=== PATIENT | female | born 1960 | race Caucasian/White ===

== ENCOUNTER 2019-10-05 15:10 | Outpatient (CLI) | payer OTHER, SELFPAY ==
--- NOTE | 2019-10-05 15:19 | USCV_ITS ---
Ivelisse Tucker Age: 58 Gender: F : 1960 Exam Date: 10/05/2019 15:36 Ordering Phys: Aura Bianchi [employer] Technologist: Trey Roman [place] [facility] [place]: PAIN IN RIGHT LEG PROCEDURES: Venous duplex imaging was performed in only the right lower extremity. The following venous structures were evaluated: common femoral vein, profunda vein, proximal portion of the greater saphenous vein, superficial femoral vein, and the popliteal vein. In addition, the posterior tibial and perneal trunk were evaluated. Serial compression, augmentation maneuvers, and spectral Doppler flow evaluation were performed. FINDINGS: Normal 2-D Doppler and augmentation and compressibility throughout the lower extremity venous structures. Additional imaging through the proximal calf veins also reveals no thrombus. Limited evaluation of the greater saphenous vein is patent with no thrombus.. CONCLUSIONS No evidence of right lower extremity DVT. Ivan Byrd MD (Electronically Signed) Final Date: 06 October 2019 10:32 S
== END 2019-10-05 15:11 | disposition home or self-care (01) ==
LOC: RAD 15:14
PROVIDERS: Family Provider Family Medicine; Visit Provider Nurse Practitioner Family
DX: M79.89 Other specified soft tissue disorders (principal); M79.604 Pain in right leg
CPT/HCPCS: 93971

== ENCOUNTER → 2020-05-17 17:48 | Outpatient (BNVA) | payer OTHER, SELFPAY | PROVIDERS: Family Provider Family Medicine; PCP Family Medicine; Visit Provider Nurse Practitioner | DX: Z12.11 Encounter for screening for malignant neoplasm of colon (principal) | CPT/HCPCS: 87635 ==

== ENCOUNTER 2020-05-21 05:37 | Day surgery (SDC) | payer OTHER, SELFPAY ==
[2020-05-18 10:23] VITALS: BMI 33.3
--- NOTE | 2020-05-21 06:58 | ANES.PREANE2 ---
Pre-Anesthetic Assessment Pre-Anesthetic Assessment: Height/Weight: Height 1.65 m Weight 90.718 kg Preop Diagnosis: screening colonoscopy Proposed Procedure: Operation Date: 05/21/20 07:00 Proposed Procedures p Colonoscopy 10501 Z12.11(Not Applicable) - Omari Mack MD Was Beta Shannen taken within 24 hours: N/A Last intake: Intake Last Liquid Date 05/19/20 Last Liquid Time 22:00 Last Solid Date 05/19/20 Last Solid Time 17:00 Social: Social History: No alcohol and No tobacco Exam: Pre-Anes Outpt Exam: alert, oriented x 3, clear to auscultation bilaterally and regular rate & rhythm Airway: Submandibular: WNL Cervical ROM: WNL MP: 2 Dentition: Full History/ROS: No significant history except as noted and No significant complaints Pulmonary: Pulmonary: None reported CV/HEM: CV/HEM: HTN : : None reported Hepatic: Hepatic: None reported GI: GI: None reported Metabolic: Metabolic: None reported Musc/skel: Musc/skel: None reported Neuropsych: Neuropsych: CVA Anesthetic Plan: ASA status: 3 Anesthesia: MAC Risk of > 500 ml blood loss (7ml/kg in children): No PFSH Anesthesia PFSH: Medical History (Updated 05/05/20 @ 13:34 by Omari Mack MD) CVA (cerebral vascular accident) Hyperlipidemia Hypertension Surgical History (Updated 05/04/20 @ 11:36 by Omari Mack MD) History of 2 sections History of appendectomy History of exploratory laparotomy History of hysterectomy Data Anesthesia Cardiac Studies: No Data to Display
--- NOTE | 2020-05-21 07:00 | W.PM.OPSUD ---
Surgery/Procedure H&P Update DATE OF PROCEDURE: May 21, 2020 DATE H&P PERFORMED: 05/04/20 H&P UPDATE INFORMATION: I have reviewed H&P completed within last 30 days, I have examined patient prior to procedure and No changes to prior documentation PREOP DIAGNOSIS: screening colonoscopy PLANNED PROCEDURE: Operation Date: 05/21/20 07:00 Proposed Procedures p Colonoscopy 09369 Z12.11(Not Applicable) - Omari Mack MD
[2020-05-21] MEDS: sodium chloride 0.9% 1,000 ML 30 ML IV (07:17)
[2020-05-21 07:46] VITALS: BP 195/78; PULSE 66; RESP 20; TEMP 36.2; O2SAT 99
[2020-05-21 08:01] VITALS: BP 185/74; PULSE 63; RESP 16; O2SAT 97
--- NOTE | 2020-05-21 18:06 | ANE.PACU2 ---
Inpatient post-anesthesia follow up: Airway intact: Yes Vital signs: Temperature 97.1 F Pulse Rate 63 Respiratory Rate 16 Blood Pressure 185/74 Pulse Oximetry 97 Oxygen Delivery Me thod Room Air Oxygen Flow Rate 2 Fraction of Inspir ed Oxygen Hydration adequate: Yes Nausea and vomiting: No Pain level: 2 Mental status: Baseline
== END 2020-05-21 08:19 | disposition home or self-care (01) ==
PROVIDERS: Family Provider Family Medicine; PCP Family Medicine; Visit Provider Surgery
PROC: 0DJD8ZZ Inspection of Lower Intestinal Tract, Via Natural or Artificial Opening Endoscopic (ICD-10-PCS; CPT 45378; principal; 2020-05-21 07:00)
DX: Z12.11 Encounter for screening for malignant neoplasm of colon (principal); K57.30 Diverticulosis of large intestine without perforation or abscess without bleeding; I10 Essential (primary) hypertension; Z86.73 Personal history of transient ischemic attack (TIA), and cerebral infarction without residual deficits; E78.5 Hyperlipidemia, unspecified
CPT/HCPCS: 45378; 96360; J2704; J7030

== ENCOUNTER 2021-08-23 07:56 | Outpatient (CLI) | payer OTHER, SELFPAY ==
--- NOTE | 2021-08-23 08:06 | MM_ITS ---
WS: [id number] BILATERAL 3D TOMOSYNTHESIS DIGITAL SCREENING MAMMOGRAPHY WITH CAD CLINICAL INFORMATION: SCREENING HISTORY: Screening mammogram. No current complaints. COMPARISON: March 02, 2018 TECHNIQUE: Bilateral CC and MLO views. FINDINGS: Scattered fibroglandular densities bilaterally. Stable clustered calcifications RIGHT breast. Punctat e and lucent centered calcifications. Secretory calcifications. No suspicious focal mass, asymmetry, calcifications, or architectural distortion. No evidence of malignancy. MM/[place] [id number] IMPRESSION: BI-RADS: 2-Benign FOLLOW UP: 1 Year Follow-up Recommend return to annual screening mammography.
== END 2021-08-23 07:57 | disposition home or self-care (01) ==
LOC: RAD 07:58
PROVIDERS: Family Provider Family Medicine; PCP Family Medicine; Visit Provider Nurse Practitioner Family
DX: Z12.31 Encounter for screening mammogram for malignant neoplasm of breast (principal)
CPT/HCPCS: 77063; 77067

== ENCOUNTER 2022-09-05 07:07 | Outpatient (CLI) | payer BC, SELFPAY ==
--- NOTE | 2022-09-05 07:22 | MM_ITS ---
WS: [id number] SCREENING DIGITAL BREAST TOMOSYNTHESIS MAMMOGRAM WITH CAD HISTORY: SCREENING COMPARISON: 08/23/2021, 03/02/2018 and 12/14/2015 Bilateral CC and MLO with tomosynthesis and synthetic mammography submitted. Computer aided detection analyzed. Breast composition: There are scattered areas of fibroglandular density. There are 2 asymmetries in t he anterior lateral RIGHT breast which have been present on prior studies but appear more prominent. The largest measures 11 x 10 mm near 8-9 o'clock. On the lateral projection this asymmetry measures 2 .4 cm. This may be duct. There is an adjacent soft tissue nodule which is just slightly more medial a nd superior. These are closely associated with each other. Benign calcifications in the LEFT breast. MM/[place] [id number] IMPRESSION: BI-RADS: 0-Incomplete: Need additional imaging evaluation FOLLOW UP: Need Additional Imaging RIGHT breast: Spot compression views (CC and MLO). True ML. Ultrasound to follo w if abnormality persists.
== END 2022-09-05 07:08 | disposition home or self-care (01) ==
PROVIDERS: PCP Nurse Practitioner Family; Visit Provider Nurse Practitioner Family
DX: Z12.31 Encounter for screening mammogram for malignant neoplasm of breast (principal)
CPT/HCPCS: 77063; 77067

== ENCOUNTER 2022-09-17 13:40 | Outpatient (CLI) | payer BC, SELFPAY ==
--- NOTE | 2022-09-17 13:45 | MM_ITS ---
WS: [id number] ADDITIONAL VIEWS RIGHT MAMMOGRAM WITH DIGITAL BREAST TOMOSYNTHESIS. RIGHT BREAST ULTRASOUND HISTORY: ABNORMAL MAMMO COMPARISON: 08/23/2021, 03/02/2018 and 12/14/2015 RIGHT MAMMOGRAM: Spot compression views and true ML with digital breast tomosynthesis and SM. The asymmetries in the anterior inferior RIGHT breast persists but appear more consistent with prior imaging study from 2021. Benign calcifications. There are soft tissue nodules around the 6-8:00 axis. RIGHT BREAST ULTRASOUND 2-D and color Doppler imaging submitted. There is a hypoechoic mass with shadowing and o'clock, 2 cm the nipple which may be a small lymph nod e. This nodule measures 1.4 x 1.2 x 0.5 cm and corresponds to the mammographic abnormality. There is an additional hypoechoic nodule at 8:00, 3 cm the nipple measuring 0.7 x 0.4 x 0.7 cm which is taller than wide. No increased vascularity. MM/[place] [id number] IMPRESSION: BI-RADS: 4-Suspicious Finding-Biopsy Should Be Considered FOLLOW UP: Biopsy Recommended Ultrasound-guided biopsy recommended of the hypoechoic mass which is taller trina n wide at 8:00, 3 cm from the nipple. There is an additional mass which appears more benign in appearance at 8:00, 2 cm from the nipple. Follow-up ultrasound in 6 months RIGHT breast.
== END 2022-09-17 13:41 | disposition home or self-care (01) ==
PROVIDERS: PCP Nurse Practitioner Family; Visit Provider Nurse Practitioner Family
DX: N63.13 Unspecified lump in the right breast, lower outer quadrant (principal)
CPT/HCPCS: 76642; 77061; G0279

== ENCOUNTER 2024-02-17 08:50 | Outpatient (CLI) | payer MEDICARE, OTHER, SELFPAY ==
--- NOTE | 2024-02-17 08:58 | XRR_ITS ---
PROCEDURE INFORMATION: Exam: XR Left Foot Exam date and time: 02/17/2024 9:03 AM Age: 63 years old Clinical indication: Pain; Foot; Left; Additional info: Left foot pain TECHNIQUE: Imaging protocol: Radiologic exam of the left foot. Views: 3 or more views. COMPARISON: No relevant prior studies available. FINDINGS: Bones/joints: Diffuse degenerative change of the visualized osseous structures. Achilles tendon enthesophyte. Heel spur. Soft tissues: No acute soft tissue findings. XR/XR foot LT min 3V* [id number] IMPRESSION: No acute findings.
== END 2024-02-17 08:51 | disposition home or self-care (01) ==
LOC: RAD 08:55
PROVIDERS: PCP Nurse Practitioner Family; Visit Provider Nurse Practitioner Family
DX: M77.32 Calcaneal spur, left foot (principal); M77.52 Other enthesopathy of left foot and ankle
CPT/HCPCS: 73630

== ENCOUNTER → 2024-02-24 09:39 | Outpatient (BNVA) | payer MEDICARE, OTHER, SELFPAY | PROVIDERS: PCP Nurse Practitioner Family; Visit Provider Podiatrist Foot & Ankle Surgery | DX: M72.2 Plantar fascial fibromatosis | CPT/HCPCS: 99203 ==